=== PATIENT | male | born 1960 | race American Indian/Alaskan Native ===

== ENCOUNTER 2019-10-20 12:04 | Outpatient (CLI) | payer BC ==
--- NOTE | 2019-10-20 13:26 | XRay Report ---
CHEST 2 VIEWS INDICATION / CLINICAL INFORMATION: CHEST COUGH. COMPARISON: None available. FINDINGS: SUPPORT DEVICES: None. HEART / MEDIASTINUM: No significant abnormality. LUNGS / PLEURA: No significant pulmonary or pleural abnormality. No pneumothorax. ADDITIONAL FINDINGS: No significant additional findings. IMPRESSION: 1. No acute findings. Signer Name: Donovan Ye MD Signed: 10/20/2019 1:22 PM Workstation Name: [id number]
== END 2019-10-20 12:05 | disposition home or self-care (01) ==
LOC: SPVIMAG 12:04
PROVIDERS: ATTEND Urology
DX: R05 Cough (principal)
CPT/HCPCS: 71046